=== PATIENT | male | born 1935 | race Caucasian/White ===

== ENCOUNTER → 2017-09-22 | Outpatient (CLI) | payer MEDICARE, MEDICAID ==
--- NOTE | 2017-09-22 16:53 | Diagnostic Imaging Report ---
Indication: Cough Technique: 2 views of the chest Comparison: None Findings: There is eventration of the right hemidiaphragm. The lungs and pleural spaces are clear. The heart size is normal. Aorta tortuous and calcified. There are degenerative spondylosis changes Impression: No acute process
== END | disposition home or self-care (01) ==
LOC: RAD 11:19
DX: R05 Cough (principal); M47.9 Spondylosis, unspecified
CPT/HCPCS: 71046